=== PATIENT | male | born 1950 | race Caucasian/White ===

== ENCOUNTER 2018-07-02 12:38 | Inpatient (IN) | payer MEDICARE ==
[~2018-07-02] VITALS: Ht 167.6 cm; Wt 56.2 kg
[2018-07-02 12:45] VITALS: BP_SYST 111
[2018-07-02] MEDS ORDERED: PIPERACILLIN/TAZO 3.38 GM in NS 50 ML IV ONE (13:15)
[2018-07-02 13:43] LABS: HEMATOCRIT 41.4 % (36-54); HEMOGLOBIN 13.5 g/dL (14.0-18.0); MEAN CORPUSCULAR HEMOGLOBIN 32 pg (27-31); MEAN CORPUSCULAR HGB CONC 33 % (32-36); MEAN CORPUSCULAR VOLUME 96 fL (79.0-98.0); PLATELET COUNT (AUTO) 247 K/uL (130-430); RED CELL DISTRIBUTION WIDTH 13.5 % (9.0-15.0); WHITE BLOOD COUNT (AUTO) 8.4 K/uL (4.8-10.8)
[2018-07-02 13:49] LABS: CALCIUM 9.5 mg/dL (8.4-11.0); CREATININE 1.2 mg/dL (0.55-1.30); POTASSIUM 4.2 mmol/L (3.5-5.1)
[2018-07-02] MEDS ORDERED: PIPERACILLIN/TAZOBACTAM 3.375 GM/VIAL (ZOSYN) IV ONE (13:49)
[2018-07-02 13:55] LABS: ALBUMIN 2.8 g/dL (3.4-4.8); TOTAL BILIRUBIN 0.4 mg/dL (0.0-1.0)
[2018-07-02 14:02] LABS: INR 1.1 (0.80-1.20)
[2018-07-02 14:14] LABS: BASOPHILS % (MANUAL) 0 % (0-2); EOSINOPHILS % (MANUAL) 0 % (0-7); LYMPHOCYTES % (MANUAL) 16 % (20-46); MONOCYTES % (MANUAL) 6 % (0-11)
[2018-07-02 16:45] LABS: BILIRUBIN,URINE NEGATIVE (NEGATIVE); BLOOD, URINE 3+ (NEGATIVE); CLARITY/URINE CLOUDY (CLEAR); COLOR,URINE YELLOW (YELLOW); GLUCOSE,URINE NEGATIVE (NEGATIVE); KETONES,URINE NEGATIVE (NEGATIVE); LEUKOCYTE ESTERASE ,URINE 2+ (NEGATIVE); NITRITE, URINE NEGATIVE (NEGATIVE); PH,URINE 8.5 (5.0-8.0); PROTEIN URINE 3+ (NEGATIVE)
[2018-07-02] MEDS ORDERED: NACL 0.9% 1,000 ML IV ONE ×2 (16:45→17:00)
[2018-07-02] MEDS ORDERED: MEMA5TAB PO (16:51)
[2018-07-02] MEDS ORDERED: ACET325T53 PO (16:51)
[2018-07-02] MEDS ORDERED: divalproex PO (16:51)
[2018-07-02] MEDS ORDERED: SER100 PO (16:51)
[2018-07-02] MEDS ORDERED: FINA5TAB3 PO (16:51)
[2018-07-02] MEDS ORDERED: LORA-258 PO (16:51)
[2018-07-02] MEDS ORDERED: LISI-209 PO (16:51)
[2018-07-02] MEDS ORDERED: BUDE0.5A IH (16:51)
[2018-07-02] MEDS ORDERED: BEN50 PO (16:51)
[2018-07-02] MEDS ORDERED: TAMS-11 PO (16:51)
[2018-07-02] MEDS ORDERED: OLAN2.5T29 PO (16:51)
[2018-07-02 17:00] LABS: BACTERIA,URINE MANY /HPF (None Seen); MUCUS,URINE None Seen /LPF (None Seen); RBC,URINE >100 /HPF (0-3); WBC,URINE >100 /HPF (0-3)
[2018-07-02] MEDS ORDERED: ONDANSETRON HCL 4 MG/2 ML VIAL IVP PRN (17:15)
[2018-07-02] MEDS ORDERED: ACETAMINOPHEN 325 MG TABLET PO SCH (17:15)
[2018-07-02] MEDS ORDERED: BUDESONIDE 0.5 MG/2 ML AMPUL.NEB IH PRN (17:15)
[2018-07-02] MEDS ORDERED: DIPHENHYDRAMINE HCL 50 MG CAPSULE PO SCH (17:15)
[2018-07-02 18:22] VITALS: BP_SYST 127
[2018-07-02 19:05] VITALS: BP_SYST 143
[2018-07-02] MEDS: FINASTERIDE 5 MG TABLET (PROSCAR) PO SCH (21:00)
[2018-07-02] MEDS: OLANZapine 2.5 MG TABLET PO SCH (21:00)
[2018-07-03] VITALS (7 sets, daily range): BP systolic 109–143
[2018-07-03 06:59] LABS: BASOPHILS % (AUTO) 0.3 % (0.0-2.0); EOSINOPHILS # (AUTO) 0.1 K/uL (0.0-0.4); EOSINOPHILS % (AUTO) 1.7 % (0.0-4.0); HEMOGLOBIN 12.3 g/dL (14.0-18.0); LYMPHOCYTES # (AUTO) 2.1 K/uL (1.0-5.5); MEAN CORPUSCULAR HEMOGLOBIN 32 pg (27-31); MEAN CORPUSCULAR HGB CONC 33 % (32-36); MEAN CORPUSCULAR VOLUME 97 fL (79.0-98.0); MONOCYTES # (AUTO) 0.9 K/uL (0.0-1.0); MONOCYTES % (AUTO) 12.9 % (1.7-9.3); NEUTROPHILS # (AUTO) 4.1 K/uL (1.8-7.7); NEUTROPHILS % (AUTO) 56.1 % (40.0-70.0); PLATELET COUNT (AUTO) 244 K/uL (130-430); RED BLOOD CELL COUNT(AUTO) 3.83 MIL/uL (4.2-6.2); RED CELL DISTRIBUTION WIDTH 13.5 % (9.0-15.0); WHITE BLOOD COUNT (AUTO) 7.2 K/uL (4.8-10.8)
[2018-07-03 07:33] LABS: POTASSIUM 5.5 mmol/L (3.5-5.1)
[2018-07-03] MEDS ORDERED: DIPHENHYDRAMINE HCL 50 MG CAPSULE PO PRN (08:00)
[2018-07-03 08:05] LABS: CALCIUM 9.7 mg/dL (8.4-11.0); CREATININE 0.84 mg/dL (0.55-1.30)
[2018-07-03] MEDS ORDERED: DEXTROSE 50% JECT 50 ML DISP.SYRIN IVP PRN (09:15)
[2018-07-03] MEDS: NACL 0.9% 1,000 ML IV SCH ×2 (11:53→21:59)
[2018-07-03] MEDS ORDERED: NS 500 ML IV ONE (12:45)
[2018-07-03] MEDS: QUEtiapine FUMARATE 100 MG TABLET PO SCH (12:53)
[2018-07-03] MEDS: OLANZapine 2.5 MG TABLET PO SCH ×3 (12:53→21:58)
[2018-07-03] MEDS: MEMANTINE HCL 5 MG TABLET PO SCH (12:53)
[2018-07-03] MEDS: LISINOPRIL 5 MG TABLET PO SCH (12:54)
[2018-07-03] MEDS: CEFEPIME 1 GM in D5W 50 ML IV SCH ×2 (14:10→21:57)
[2018-07-03] MEDS: INSULIN REGULAR, HUMAN 100 UNITS/ML, 10 ML VIAL (novoLIN R) SUBCUT PRN (18:24)
[2018-07-03] MEDS: FINASTERIDE 5 MG TABLET (PROSCAR) PO SCH (21:00)
[2018-07-03] MEDS: TAMSULOSIN HCL 0.4 MG CAP PO SCH (21:59)
[2018-07-04 00:03] VITALS: BP_SYST 136
[2018-07-04] MEDS: NACL 0.9% 1,000 ML IV SCH ×2 (04:53→09:26)
[2018-07-04] MEDS: CEFEPIME 1 GM in D5W 50 ML IV SCH ×2 (08:28→21:42)
[2018-07-04] MEDS: OLANZapine 2.5 MG TABLET PO SCH ×3 (08:32→21:42)
[2018-07-04] MEDS: QUEtiapine FUMARATE 100 MG TABLET PO SCH (08:32)
[2018-07-04] MEDS: MEMANTINE HCL 5 MG TABLET PO SCH (08:32)
[2018-07-04] MEDS: LISINOPRIL 5 MG TABLET PO SCH (08:43)
[2018-07-04 09:00] VITALS: BP_SYST 180
[2018-07-04] MEDS ORDERED: cloNIDine HCL 0.1 MG TABLET PO PRN (09:15)
[2018-07-04 09:20] VITALS: BP_SYST 113
[2018-07-04 11:36] VITALS: BP_SYST 127
[2018-07-04] MEDS: NORMAL SALINE 5 ML DISP.SYRIN IVF SCH ×2 (15:01→21:43)
[2018-07-04 16:00] VITALS: BP_SYST 116
[2018-07-04] MEDS: DEXTROSE 50% JECT 50 ML DISP.SYRIN IVP PRN (18:22)
[2018-07-04 21:02] VITALS: BP_SYST 137
[2018-07-04] MEDS: TAMSULOSIN HCL 0.4 MG CAP PO SCH (21:42)
[2018-07-04] MEDS: LORazepam 1 MG TABLET PO SCH (21:42)
[2018-07-04] MEDS: FINASTERIDE 5 MG TABLET (PROSCAR) PO SCH (21:42)
[2018-07-05 01:25] VITALS: BP_SYST 124
[2018-07-05] MEDS: NORMAL SALINE 5 ML DISP.SYRIN IVF SCH ×3 (06:23→21:35)
[2018-07-05 08:06] VITALS: BP_SYST 141
[2018-07-05] MEDS: CEFEPIME 1 GM in D5W 50 ML IV SCH ×2 (08:37→21:21)
[2018-07-05 08:58] LABS: BASOPHILS % (AUTO) 0.5 % (0.0-2.0); EOSINOPHILS # (AUTO) 0.1 K/uL (0.0-0.4); EOSINOPHILS % (AUTO) 1.9 % (0.0-4.0); HEMATOCRIT 35.1 % (36-54); HEMOGLOBIN 11.8 g/dL (14.0-18.0); LYMPHOCYTES # (AUTO) 1.7 K/uL (1.0-5.5); LYMPHOCYTES % (AUTO) 24.3 % (20.5-51.5); MEAN CORPUSCULAR HEMOGLOBIN 33 pg (27-31); MEAN CORPUSCULAR HGB CONC 34 % (32-36); MEAN CORPUSCULAR VOLUME 97 fL (79.0-98.0); MONOCYTES # (AUTO) 0.8 K/uL (0.0-1.0); MONOCYTES % (AUTO) 11.6 % (1.7-9.3); NEUTROPHILS # (AUTO) 4.3 K/uL (1.8-7.7); NEUTROPHILS % (AUTO) 61.7 % (40.0-70.0); PLATELET COUNT (AUTO) 242 K/uL (130-430); RED BLOOD CELL COUNT(AUTO) 3.61 MIL/uL (4.2-6.2); RED CELL DISTRIBUTION WIDTH 13.3 % (9.0-15.0); WHITE BLOOD COUNT (AUTO) 6.9 K/uL (4.8-10.8)
[2018-07-05 09:10] LABS: CALCIUM 8.6 mg/dL (8.4-11.0); CREATININE 0.73 mg/dL (0.55-1.30)
[2018-07-05] MEDS: QUEtiapine FUMARATE 100 MG TABLET PO SCH (09:19)
[2018-07-05] MEDS: LISINOPRIL 5 MG TABLET PO SCH (09:19)
[2018-07-05] MEDS: OLANZapine 2.5 MG TABLET PO SCH ×3 (09:19→21:19)
[2018-07-05] MEDS: MEMANTINE HCL 5 MG TABLET PO SCH (09:19)
[2018-07-05 09:20] LABS: POTASSIUM 2.8 mmol/L (3.5-5.1)
[2018-07-05 09:36] LABS: C-REACTIVE PROTEIN QUANT 3.7 mg/dL (0-0.5)
[2018-07-05 09:50] LABS: ERYTHROCYTE SEDIMENTATION RATE 45 MM/HR (0-15)
[2018-07-05] MEDS ORDERED: POTASSIUM CHLORIDE 40 MEQ in NS 250 ML IV ONE (10:15)
[2018-07-05 12:00] VITALS: BP_SYST 144
[2018-07-05 16:00] VITALS: BP_SYST 149
[2018-07-05] MEDS: INSULIN REGULAR, HUMAN 100 UNITS/ML, 10 ML VIAL (novoLIN R) SUBCUT PRN (16:47)
[2018-07-05 19:45] LABS: POTASSIUM 3.5 mmol/L (3.5-5.1)
[2018-07-05 19:51] VITALS: BP_SYST 140
[2018-07-05] MEDS: TAMSULOSIN HCL 0.4 MG CAP PO SCH (21:19)
[2018-07-05] MEDS: FINASTERIDE 5 MG TABLET (PROSCAR) PO SCH (21:20)
[2018-07-05] MEDS: DEXTROSE 50% JECT 50 ML DISP.SYRIN IVP PRN (21:59)
[2018-07-06] VITALS: BP_SYST 144
[2018-07-06] MEDS: DEXTROSE 50% JECT 50 ML DISP.SYRIN IVP PRN (06:31)
[2018-07-06] MEDS: NORMAL SALINE 5 ML DISP.SYRIN IVF SCH ×3 (06:37→20:25)
[2018-07-06 08:33] VITALS: BP_SYST 146
[2018-07-06] MEDS: CEFEPIME 1 GM in D5W 50 ML IV SCH ×2 (08:40→20:22)
[2018-07-06] MEDS: OLANZapine 2.5 MG TABLET PO SCH ×3 (08:46→20:23)
[2018-07-06] MEDS: LORazepam 1 MG TABLET PO SCH (08:46)
[2018-07-06] MEDS: LISINOPRIL 5 MG TABLET PO SCH (08:46)
[2018-07-06] MEDS: QUEtiapine FUMARATE 100 MG TABLET PO SCH (08:46)
[2018-07-06] MEDS: MEMANTINE HCL 5 MG TABLET PO SCH (08:46)
[2018-07-06 09:10] LABS: BASOPHILS # (AUTO) 0.1 K/uL (0.0-0.2); BASOPHILS % (AUTO) 0.7 % (0.0-2.0); EOSINOPHILS # (AUTO) 0.2 K/uL (0.0-0.4); EOSINOPHILS % (AUTO) 3.2 % (0.0-4.0); HEMATOCRIT 41.2 % (36-54); HEMOGLOBIN 13.7 g/dL (14.0-18.0); LYMPHOCYTES # (AUTO) 1.5 K/uL (1.0-5.5); LYMPHOCYTES % (AUTO) 21.5 % (20.5-51.5); MEAN CORPUSCULAR HEMOGLOBIN 32 pg (27-31); MEAN CORPUSCULAR HGB CONC 33 % (32-36); MEAN CORPUSCULAR VOLUME 96 fL (79.0-98.0); MONOCYTES # (AUTO) 0.6 K/uL (0.0-1.0); MONOCYTES % (AUTO) 8.8 % (1.7-9.3); NEUTROPHILS # (AUTO) 4.8 K/uL (1.8-7.7); NEUTROPHILS % (AUTO) 65.8 % (40.0-70.0); PLATELET COUNT (AUTO) 322 K/uL (130-430); RED CELL DISTRIBUTION WIDTH 13.1 % (9.0-15.0); WHITE BLOOD COUNT (AUTO) 7.2 K/uL (4.8-10.8)
[2018-07-06 09:24] LABS: C-REACTIVE PROTEIN QUANT 2.7 mg/dL (0-0.5); CALCIUM 9.4 mg/dL (8.4-11.0); CREATININE 0.72 mg/dL (0.55-1.30); POTASSIUM 3.3 mmol/L (3.5-5.1)
[2018-07-06 10:22] LABS: ERYTHROCYTE SEDIMENTATION RATE 53 MM/HR (0-15)
[2018-07-06 12:00] VITALS: BP_SYST 98
[2018-07-06 12:50] VITALS: BP_SYST 146
[2018-07-06] MEDS ORDERED: CEFE1PIG3 IV (12:57)
[2018-07-06] MEDS ORDERED: INSU100V11 SUBCUT (12:57)
[2018-07-06] MEDS ORDERED: POTASSIUM CHLORIDE 20 MEQ TAB.PRT.SR PO ONE (13:00)
[2018-07-06 14:00] VITALS: BP_SYST 149
[2018-07-06 20:00] VITALS: BP_SYST 119
[2018-07-06] MEDS: TAMSULOSIN HCL 0.4 MG CAP PO SCH (20:22)
[2018-07-06] MEDS: FINASTERIDE 5 MG TABLET (PROSCAR) PO SCH (20:23)
[2018-07-06] MEDS: INSULIN REGULAR, HUMAN 100 UNITS/ML, 10 ML VIAL (novoLIN R) SUBCUT PRN (20:33)
[2018-07-07 00:15] VITALS: BP_SYST 137
[2018-07-07] MEDS: LORazepam 1 MG TABLET PO SCH (01:00)
[2018-07-07] MEDS: NORMAL SALINE 5 ML DISP.SYRIN IVF SCH ×2 (06:03→14:08)
[2018-07-07 08:05] VITALS: BP_SYST 139
[2018-07-07] MEDS: CEFEPIME 1 GM in D5W 50 ML IV SCH (09:27)
[2018-07-07] MEDS: MEMANTINE HCL 5 MG TABLET PO SCH (09:28)
[2018-07-07] MEDS: QUEtiapine FUMARATE 100 MG TABLET PO SCH (09:28)
[2018-07-07] MEDS: OLANZapine 2.5 MG TABLET PO SCH ×2 (09:28→14:08)
[2018-07-07] MEDS: LISINOPRIL 5 MG TABLET PO SCH (09:29)
[2018-07-07] MEDS: DEXTROSE 50% JECT 50 ML DISP.SYRIN IVP PRN (09:35)
[2018-07-07] MEDS: INSULIN REGULAR, HUMAN 100 UNITS/ML, 10 ML VIAL (novoLIN R) SUBCUT PRN (11:46)
[2018-07-07 12:40] VITALS: BP_SYST 125
[2018-07-07 14:42] VITALS: BP_SYST 125
== END 2018-07-07 15:50 | DRG 720 ==
LOC: SED 12:38 → SMU 17:03
PROVIDERS: ADMIT Preventive Medicine Preventive Medicine/Occupational Environmental Medicine; ATTEND Preventive Medicine Preventive Medicine/Occupational Environmental Medicine
DX: A41.9 Sepsis, unspecified organism (principal); N17.9 Acute kidney failure, unspecified; G93.41 Metabolic encephalopathy; E87.0 Hyperosmolality and hypernatremia; E87.5 Hyperkalemia; D64.9 Anemia, unspecified; E11.9 Type 2 diabetes mellitus without complications; G20 Parkinson's disease; F25.9 Schizoaffective disorder, unspecified; G30.9 Alzheimer's disease, unspecified; J44.9 Chronic obstructive pulmonary disease, unspecified; F02.80 Dementia in other diseases classified elsewhere, unspecified severity, without behavioral disturbance, psychotic disturbance, mood disturbance, and anxiety; E78.5 Hyperlipidemia, unspecified; E86.0 Dehydration; I10 Essential (primary) hypertension; N39.0 Urinary tract infection, site not specified; R31.0 Gross hematuria; N32.81 Overactive bladder; B96.4 Proteus (mirabilis) (morganii) as the cause of diseases classified elsewhere; F41.1 Generalized anxiety disorder; K21.9 Gastro-esophageal reflux disease without esophagitis; N40.1 Benign prostatic hyperplasia with lower urinary tract symptoms; R33.8 Other retention of urine; F63.9 Impulse disorder, unspecified; F32.9 Major depressive disorder, single episode, unspecified; F79 Unspecified intellectual disabilities; E87.6 Hypokalemia; Z16.19 Resistance to other specified beta lactam antibiotics; Z86.73 Personal history of transient ischemic attack (TIA), and cerebral infarction without residual deficits; Z88.0 Allergy status to penicillin; Z79.899 Other long term (current) drug therapy
CPT/HCPCS: 36415; 71045; 74018; 80048; 80053; 81000-TC; 82962; 83605; 83735-TC; 84100-TC; 84132-TC; 85007; 85025; 85027; 85610-TC; 85651-TC; 86140; 87040-TC; 87081; 87086; 87186-TC; 96361; 96365; 99285; J0692; J1815; J2543; J3480; J7030; J7040; J7050; J7060

== ENCOUNTER 2018-08-07 22:02 | Inpatient (IN) | payer MEDICARE ==
[~2018-08-07] VITALS: Ht 160 cm; Wt 54.0 kg
[2018-08-07 22:02] VITALS: BP_SYST 141
[~2018-08-07 22:02] MED LIST: ACET325T53 GT; BEN50 GT; BUDE0.5A IH; CEFE1PIG3 IV; FINA5TAB3 GT; INSU100V11 SUBCUT; LISI-209 GT; LORA-258 GT; MEMA5TAB PO; OLAN2.5T29 GT; SER100 GT; TAMS-11 GT; divalproex PO
[2018-08-07] MEDS ORDERED: DIVA250T GT (22:16)
[2018-08-07] MEDS ORDERED: INSU100V9 SQ (22:19)
[2018-08-07] MEDS ORDERED: FOSFOMYCIN GT (22:29)
[2018-08-07] MEDS ORDERED: NACL 0.9% 1,000 ML IV ONE (22:30)
[2018-08-07 22:40] LABS: BASOPHILS # (AUTO) 0.1 K/uL (0.0-0.2); BASOPHILS % (AUTO) 0.7 % (0.0-2.0); EOSINOPHILS % (AUTO) 0.1 % (0.0-4.0); HEMATOCRIT 43.8 % (36-54); HEMOGLOBIN 14.1 g/dL (14.0-18.0); LYMPHOCYTES # (AUTO) 0.8 K/uL (1.0-5.5); LYMPHOCYTES % (AUTO) 6.6 % (20.5-51.5); MEAN CORPUSCULAR HEMOGLOBIN 31 pg (27-31); MEAN CORPUSCULAR HGB CONC 32 % (32-36); MEAN CORPUSCULAR VOLUME 97 fL (79.0-98.0); MONOCYTES # (AUTO) 0.7 K/uL (0.0-1.0); MONOCYTES % (AUTO) 6.1 % (1.7-9.3); NEUTROPHILS % (AUTO) 86.5 % (40.0-70.0); PLATELET COUNT (AUTO) 305 K/uL (130-430); RED BLOOD CELL COUNT(AUTO) 4.53 MIL/uL (4.2-6.2); RED CELL DISTRIBUTION WIDTH 14.4 % (9.0-15.0); WHITE BLOOD COUNT (AUTO) 11.6 K/uL (4.8-10.8)
[2018-08-07 22:45] LABS: CALCIUM 9.6 mg/dL (8.4-11.0); CREATININE 1.2 mg/dL (0.55-1.30)
[2018-08-07 22:52] LABS: ALBUMIN 3.2 g/dL (3.4-4.8); TOTAL BILIRUBIN 0.7 mg/dL (0.0-1.0)
[2018-08-07 22:53] LABS: INR 1.2 (0.80-1.20); PROTHROMBIN TIME 11.6 SECS (9.5-12.5)
[2018-08-07] MEDS ORDERED: cefTRIAXone 1 GM IVPB PREMIX 50 ML IV ONE (23:15)
[2018-08-07 23:27] LABS: BILIRUBIN,URINE NEGATIVE (NEGATIVE); BLOOD, URINE 2+ (NEGATIVE); COLOR,URINE YELLOW (YELLOW); GLUCOSE,URINE NEGATIVE (NEGATIVE); KETONES,URINE NEGATIVE (NEGATIVE); LEUKOCYTE ESTERASE ,URINE 2+ (NEGATIVE); NITRITE, URINE POSITIVE (NEGATIVE); PROTEIN URINE 2+ (NEGATIVE); UROBILINOGEN,URINE 0.2 (0.2-1.0)
[2018-08-07 23:31] LABS: CLARITY/URINE CLOUDY (CLEAR)
[2018-08-07 23:35] LABS: BACTERIA,URINE MODERATE /HPF (None Seen); MUCUS,URINE None Seen /LPF (None Seen); RBC,URINE 20-50 /HPF (0-3); WBC,URINE 80-100 /HPF (0-3); YEAST,URINE None Seen /HPF (None Seen)
[2018-08-08] VITALS (7 sets, daily range): BP systolic 95–138
[2018-08-08] MEDS ORDERED: IOHEXOL 350 mgI/mL, 150 ML INFUS..BTL IV ONE (00:38)
[2018-08-08] MEDS ORDERED: VANCOMYCIN HCL 1,000 MG in NS 250 ML IV ONE (01:15)
[2018-08-08] MEDS ORDERED: NACL 0.9% 1,000 ML IV ONE (01:15)
[2018-08-08] MEDS ORDERED: VANCOMYCIN HCL 1000 MG/VIAL IV ONE (01:44)
[2018-08-08] MEDS ORDERED: ACETAMINOPHEN 325 MG TABLET PO ONE (01:45)
[2018-08-08] MEDS ORDERED: hydrALAZINE HCL 20 MG/ML VIAL ONE (02:25)
[2018-08-08] MEDS ORDERED: hydrALAZINE HCL 20 MG/ML VIAL IVP ONE (02:30)
[2018-08-08] MEDS ORDERED: BUDESONIDE 0.5 MG/2 ML AMPUL.NEB IH PRN (05:00)
[2018-08-08] MEDS ORDERED: FOSFOMYCIN GT SCH (05:00)
[2018-08-08] MEDS ORDERED: ONDANSETRON HCL 4 MG/2 ML VIAL IVP PRN (05:00)
[2018-08-08] MEDS ORDERED: DEXTROSE 50% JECT 50 ML DISP.SYRIN IVP PRN (05:00)
[2018-08-08] MEDS: LORazepam 1 MG TABLET GT PRN ×2 (05:20→21:59)
[2018-08-08] MEDS: INSULIN REGULAR, HUMAN 100 UNITS/ML, 10 ML VIAL (novoLIN R) SUBCUT PRN ×2 (06:41→12:16)
[2018-08-08] MEDS: QUEtiapine FUMARATE 100 MG TABLET GT SCH (08:15)
[2018-08-08] MEDS: OLANZapine 2.5 MG TABLET GT SCH ×3 (08:15→21:00)
[2018-08-08] MEDS: LISINOPRIL 5 MG TABLET GT SCH (08:16)
[2018-08-08] MEDS ORDERED: DIVALPROEX SODIUM 250 MG TAB.SR.24H (DEPAKOTE ER) PO SCH (09:00)
[2018-08-08] MEDS: DIVALPROEX SODIUM 250 MG TABLET(DEPAKOTE) PO SCH ×4 (09:17→20:55)
[2018-08-08] MEDS: NACL 0.9% 1,000 ML IV SCH ×2 (12:56→21:10)
[2018-08-08] MEDS: FINASTERIDE 5 MG TABLET (PROSCAR) GT SCH (20:55)
[2018-08-08] MEDS: TAMSULOSIN HCL 0.4 MG CAP GT SCH (20:55)
[2018-08-08] MEDS: CLOTRIMAZOLE/BETAMET DIPROP 15 GM TUBE TP SCH (21:01)
[2018-08-08] MEDS ORDERED: cefTRIAXone 1 GM IVPB PREMIX 50 ML IV SCH (22:00)
[2018-08-09] MEDS: LORazepam 1 MG TABLET GT PRN (04:04)
[2018-08-09] MEDS: DEXTROSE 50% JECT 50 ML DISP.SYRIN IVP PRN (05:16)
[2018-08-09] MEDS: NACL 0.9% 1,000 ML IV SCH (05:26)
[2018-08-09 06:53] LABS: BASOPHILS % (AUTO) 0.2 % (0.0-2.0); EOSINOPHILS # (AUTO) 0.1 K/uL (0.0-0.4); EOSINOPHILS % (AUTO) 1.4 % (0.0-4.0); HEMATOCRIT 35.3 % (36-54); LYMPHOCYTES # (AUTO) 1.3 K/uL (1.0-5.5); LYMPHOCYTES % (AUTO) 13.3 % (20.5-51.5); MEAN CORPUSCULAR HEMOGLOBIN 33 pg (27-31); MEAN CORPUSCULAR HGB CONC 34 % (32-36); MEAN CORPUSCULAR VOLUME 97 fL (79.0-98.0); MONOCYTES # (AUTO) 0.6 K/uL (0.0-1.0); MONOCYTES % (AUTO) 5.7 % (1.7-9.3); NEUTROPHILS # (AUTO) 7.8 K/uL (1.8-7.7); NEUTROPHILS % (AUTO) 79.4 % (40.0-70.0); PLATELET COUNT (AUTO) 260 K/uL (130-430); RED BLOOD CELL COUNT(AUTO) 3.63 MIL/uL (4.2-6.2); RED CELL DISTRIBUTION WIDTH 14.7 % (9.0-15.0); WHITE BLOOD COUNT (AUTO) 9.8 K/uL (4.8-10.8)
[2018-08-09 07:38] LABS: C-REACTIVE PROTEIN QUANT 4.1 mg/dL (0-0.5); CALCIUM 8.4 mg/dL (8.4-11.0); CREATININE 0.65 mg/dL (0.55-1.30)
[2018-08-09 07:41] VITALS: BP_SYST 122
[2018-08-09 08:26] LABS: ERYTHROCYTE SEDIMENTATION RATE 23 MM/HR (0-15)
[2018-08-09] MEDS: DIVALPROEX SODIUM 250 MG TABLET(DEPAKOTE) PO SCH ×4 (08:42→20:22)
[2018-08-09] MEDS: CLOTRIMAZOLE/BETAMET DIPROP 15 GM TUBE TP SCH ×2 (08:42→20:23)
[2018-08-09] MEDS: QUEtiapine FUMARATE 100 MG TABLET GT SCH (08:42)
[2018-08-09] MEDS: LISINOPRIL 5 MG TABLET GT SCH (08:42)
[2018-08-09] MEDS: OLANZapine 2.5 MG TABLET GT SCH ×3 (08:43→20:22)
[2018-08-09] MEDS ORDERED: POTASSIUM CHLORIDE 20 MEQ TAB.PRT.SR PO ONE (09:45)
[2018-08-09 11:09] VITALS: BP_SYST 128
[2018-08-09 15:31] VITALS: BP_SYST 132
[2018-08-09 17:35] VITALS: BP_SYST 139
[2018-08-09] MEDS: ACETAMINOPHEN 325 MG TABLET GT PRN (17:56)
[2018-08-09 20:00] VITALS: BP_SYST 128
[2018-08-09] MEDS: VANCOMYCIN HCL 1,250 MG in NS 250 ML IV SCH (20:12)
[2018-08-09] MEDS: TAMSULOSIN HCL 0.4 MG CAP GT SCH (20:22)
[2018-08-09] MEDS: FINASTERIDE 5 MG TABLET (PROSCAR) GT SCH (20:22)
[2018-08-09] MEDS: MUPIROCIN 2% TOPICAL OINTMENT 22 GM NS SCH (20:23)
[2018-08-09] MEDS: CEFEPIME 2 GM in D5W 100 ML IV SCH (21:49)
[2018-08-10] MEDS: INSULIN REGULAR, HUMAN 100 UNITS/ML, 10 ML VIAL (novoLIN R) SUBCUT PRN ×4 (05:40→23:01)
[2018-08-10 07:04] LABS: CREATININE 0.78 mg/dL (0.55-1.30); POTASSIUM 4.3 mmol/L (3.5-5.1)
[2018-08-10 07:06] LABS: HEMATOCRIT 41.8 % (36-54); HEMOGLOBIN 13.9 g/dL (14.0-18.0); MEAN CORPUSCULAR HEMOGLOBIN 32 pg (27-31); MEAN CORPUSCULAR HGB CONC 33 % (32-36); MEAN CORPUSCULAR VOLUME 97 fL (79.0-98.0); PLATELET COUNT (AUTO) 258 K/uL (130-430); RED BLOOD CELL COUNT(AUTO) 4.34 MIL/uL (4.2-6.2); RED CELL DISTRIBUTION WIDTH 14.8 % (9.0-15.0)
[2018-08-10 07:22] LABS: WHITE BLOOD COUNT (AUTO) 18.6 K/uL (4.8-10.8)
[2018-08-10 07:48] LABS: C-REACTIVE PROTEIN QUANT 14.1 mg/dL (0-0.5)
[2018-08-10 08:00] VITALS: BP_SYST 142
[2018-08-10 08:04] LABS: ATYPICAL LYMPHOCYTES % 0 % (0-0); BAND % (MANUAL) 10 % (0-6); BASOPHILS % (MANUAL) 0 % (0-2); EOSINOPHILS % (MANUAL) 0 % (0-7); LYMPHOCYTES % (MANUAL) 5 % (20-46); MONOCYTES % (MANUAL) 2 % (0-11)
[2018-08-10] MEDS: CEFEPIME 2 GM in D5W 100 ML IV SCH (08:24)
[2018-08-10] MEDS: ACETAMINOPHEN 325 MG TABLET GT PRN (08:24)
[2018-08-10] MEDS: MUPIROCIN 2% TOPICAL OINTMENT 22 GM NS SCH ×2 (08:25→22:48)
[2018-08-10] MEDS: DIVALPROEX SODIUM 250 MG TABLET(DEPAKOTE) PO SCH ×4 (08:25→22:47)
[2018-08-10] MEDS: QUEtiapine FUMARATE 100 MG TABLET GT SCH (08:25)
[2018-08-10] MEDS: OLANZapine 2.5 MG TABLET GT SCH ×3 (08:25→22:47)
[2018-08-10] MEDS: LISINOPRIL 5 MG TABLET GT SCH (08:25)
[2018-08-10] MEDS: CLOTRIMAZOLE/BETAMET DIPROP 15 GM TUBE TP SCH ×2 (08:26→22:49)
[2018-08-10 09:03] LABS: ERYTHROCYTE SEDIMENTATION RATE 48 MM/HR (0-15)
[2018-08-10 11:29] VITALS: BP_SYST 115
[2018-08-10] MEDS: MEROPENEM 1 GM in NS 100 ML IV SCH ×2 (14:59→22:49)
[2018-08-10 15:25] VITALS: BP_SYST 116
[2018-08-10] MEDS: GENTAMICIN 80 MG/ ISO-OSM 100 ML PREMIX IV SCH (16:37)
[2018-08-10] MEDS: VANCOMYCIN HCL 1,250 MG in NS 250 ML IV SCH (18:11)
[2018-08-10 20:35] VITALS: BP_SYST 149
[2018-08-10] MEDS: TAMSULOSIN HCL 0.4 MG CAP GT SCH (22:48)
[2018-08-10] MEDS: FINASTERIDE 5 MG TABLET (PROSCAR) GT SCH (22:48)
[2018-08-11] MEDS: ACETAMINOPHEN 325 MG TABLET GT PRN (00:05)
[2018-08-11 00:42] VITALS: BP_SYST 143
[2018-08-11] MEDS: GENTAMICIN 80 MG/ ISO-OSM 100 ML PREMIX IV SCH ×2 (06:37→17:28)
[2018-08-11] MEDS: MEROPENEM 1 GM in NS 100 ML IV SCH ×3 (06:38→21:59)
[2018-08-11 07:11] VITALS: BP_SYST 143
[2018-08-11 08:00] VITALS: BP_SYST 143
[2018-08-11 08:25] LABS: BASOPHILS % (AUTO) 0.1 % (0.0-2.0); EOSINOPHILS # (AUTO) 0.1 K/uL (0.0-0.4); EOSINOPHILS % (AUTO) 0.3 % (0.0-4.0); LYMPHOCYTES # (AUTO) 1.1 K/uL (1.0-5.5); WHITE BLOOD COUNT (AUTO) 18.2 K/uL (4.8-10.8)
[2018-08-11 08:32] LABS: HEMATOCRIT 36.7 % (36-54); HEMOGLOBIN 12.1 g/dL (14.0-18.0); LYMPHOCYTES % (AUTO) 5.8 % (20.5-51.5); MEAN CORPUSCULAR HEMOGLOBIN 32 pg (27-31); MEAN CORPUSCULAR HGB CONC 33 % (32-36); MEAN CORPUSCULAR VOLUME 97 fL (79.0-98.0); MONOCYTES # (AUTO) 0.8 K/uL (0.0-1.0); MONOCYTES % (AUTO) 4.4 % (1.7-9.3); NEUTROPHILS # (AUTO) 16.2 K/uL (1.8-7.7); PLATELET COUNT (AUTO) 247 K/uL (130-430); RED BLOOD CELL COUNT(AUTO) 3.78 MIL/uL (4.2-6.2); RED CELL DISTRIBUTION WIDTH 14.6 % (9.0-15.0)
[2018-08-11 08:50] LABS: NEUTROPHILS % (AUTO) 89.4 % (40.0-70.0)
[2018-08-11 08:55] LABS: C-REACTIVE PROTEIN QUANT 17.4 mg/dL (0-0.5); CALCIUM 8.7 mg/dL (8.4-11.0); CREATININE 0.72 mg/dL (0.55-1.30)
[2018-08-11] MEDS: OLANZapine 2.5 MG TABLET GT SCH ×3 (09:50→21:57)
[2018-08-11] MEDS: QUEtiapine FUMARATE 100 MG TABLET GT SCH (09:50)
[2018-08-11] MEDS: LISINOPRIL 5 MG TABLET GT SCH (09:51)
[2018-08-11] MEDS: DIVALPROEX SODIUM 250 MG TABLET(DEPAKOTE) PO SCH ×4 (09:51→21:57)
[2018-08-11] MEDS: CLOTRIMAZOLE/BETAMET DIPROP 15 GM TUBE TP SCH ×2 (09:53→21:56)
[2018-08-11] MEDS: MUPIROCIN 2% TOPICAL OINTMENT 22 GM NS SCH ×2 (09:53→21:56)
[2018-08-11 11:31] LABS: ERYTHROCYTE SEDIMENTATION RATE 63 MM/HR (0-15)
[2018-08-11 12:15] VITALS: BP_SYST 132
[2018-08-11 16:25] VITALS: BP_SYST 142
[2018-08-11] MEDS: VANCOMYCIN HCL 1,250 MG in NS 250 ML IV SCH (18:42)
[2018-08-11 20:10] VITALS: BP_SYST 130
[2018-08-11] MEDS: TAMSULOSIN HCL 0.4 MG CAP GT SCH (21:57)
[2018-08-11] MEDS: FINASTERIDE 5 MG TABLET (PROSCAR) GT SCH (21:57)
[2018-08-11] MEDS: DIPHENHYDRAMINE HCL 50 MG CAPSULE GT PRN (22:59)
[2018-08-12] VITALS: BP_SYST 129
[2018-08-12] MEDS: MEROPENEM 1 GM in NS 100 ML IV SCH ×3 (05:31→21:02)
[2018-08-12] MEDS: GENTAMICIN 80 MG/ ISO-OSM 100 ML PREMIX IV SCH ×2 (05:31→17:36)
[2018-08-12 07:11] LABS: HEMATOCRIT 33.6 % (36-54); HEMOGLOBIN 11.3 g/dL (14.0-18.0); MEAN CORPUSCULAR HEMOGLOBIN 33 pg (27-31); MEAN CORPUSCULAR HGB CONC 34 % (32-36); MEAN CORPUSCULAR VOLUME 97 fL (79.0-98.0); PLATELET COUNT (AUTO) 221 K/uL (130-430); RED BLOOD CELL COUNT(AUTO) 3.48 MIL/uL (4.2-6.2); RED CELL DISTRIBUTION WIDTH 14.4 % (9.0-15.0)
[2018-08-12 07:23] LABS: CALCIUM 8.6 mg/dL (8.4-11.0); CREATININE 0.58 mg/dL (0.55-1.30); POTASSIUM 3.8 mmol/L (3.5-5.1)
[2018-08-12 07:24] LABS: WHITE BLOOD COUNT (AUTO) 10.6 K/uL (4.8-10.8)
[2018-08-12 07:53] LABS: C-REACTIVE PROTEIN QUANT 13.5 mg/dL (0-0.5)
[2018-08-12 08:00] VITALS: BP_SYST 138
[2018-08-12 08:20] LABS: ERYTHROCYTE SEDIMENTATION RATE 76 MM/HR (0-15)
[2018-08-12] MEDS: QUEtiapine FUMARATE 100 MG TABLET GT SCH (09:01)
[2018-08-12] MEDS: LORazepam 1 MG TABLET GT PRN (09:01)
[2018-08-12] MEDS: DIPHENHYDRAMINE HCL 50 MG CAPSULE GT PRN (09:01)
[2018-08-12] MEDS: DIVALPROEX SODIUM 250 MG TABLET(DEPAKOTE) PO SCH ×4 (09:01→21:02)
[2018-08-12] MEDS: LISINOPRIL 5 MG TABLET GT SCH (09:02)
[2018-08-12] MEDS: OLANZapine 2.5 MG TABLET GT SCH ×3 (09:02→21:02)
[2018-08-12] MEDS: CLOTRIMAZOLE/BETAMET DIPROP 15 GM TUBE TP SCH ×2 (09:03→21:03)
[2018-08-12] MEDS: MUPIROCIN 2% TOPICAL OINTMENT 22 GM NS SCH ×2 (09:03→21:03)
[2018-08-12 10:16] LABS: ATYPICAL LYMPHOCYTES % 0 % (0-0); BAND % (MANUAL) 8 % (0-6); BASOPHILS % (MANUAL) 0 % (0-2); EOSINOPHILS % (MANUAL) 1 % (0-7); LYMPHOCYTES % (MANUAL) 10 % (20-46); MONOCYTES % (MANUAL) 7 % (0-11)
[2018-08-12 12:52] VITALS: BP_SYST 116
[2018-08-12 16:39] VITALS: BP_SYST 106
[2018-08-12] MEDS: VANCOMYCIN HCL 1,250 MG in NS 250 ML IV SCH (18:22)
[2018-08-12 18:44] LABS: VANCOMYCIN,TROUGH 5.8 ug/mL (5.0-10.0)
[2018-08-12 19:30] VITALS: BP_SYST 127
[2018-08-12] MEDS: TAMSULOSIN HCL 0.4 MG CAP GT SCH (21:01)
[2018-08-12] MEDS: FINASTERIDE 5 MG TABLET (PROSCAR) GT SCH (21:02)
[2018-08-13 01:47] VITALS: BP_SYST 136
[2018-08-13] MEDS: GENTAMICIN 80 MG/ ISO-OSM 100 ML PREMIX IV SCH (05:26)
[2018-08-13] MEDS: MEROPENEM 1 GM in NS 100 ML IV SCH ×2 (05:27→13:50)
[2018-08-13 07:36] LABS: BASOPHILS % (AUTO) 0.7 % (0.0-2.0); EOSINOPHILS # (AUTO) 0.1 K/uL (0.0-0.4); EOSINOPHILS % (AUTO) 1.8 % (0.0-4.0); HEMATOCRIT 37.6 % (36-54); HEMOGLOBIN 11.8 g/dL (14.0-18.0); LYMPHOCYTES # (AUTO) 0.6 K/uL (1.0-5.5); LYMPHOCYTES % (AUTO) 11.5 % (20.5-51.5); MEAN CORPUSCULAR HEMOGLOBIN 30 pg (27-31); MEAN CORPUSCULAR HGB CONC 32 % (32-36); MEAN CORPUSCULAR VOLUME 96 fL (79.0-98.0); MONOCYTES # (AUTO) 0.6 K/uL (0.0-1.0); NEUTROPHILS # (AUTO) 4.1 K/uL (1.8-7.7); PLATELET COUNT (AUTO) 279 K/uL (130-430); RED BLOOD CELL COUNT(AUTO) 3.91 MIL/uL (4.2-6.2); RED CELL DISTRIBUTION WIDTH 14.2 % (9.0-15.0); WHITE BLOOD COUNT (AUTO) 5.4 K/uL (4.8-10.8)
[2018-08-13 07:47] LABS: C-REACTIVE PROTEIN QUANT 7.7 mg/dL (0-0.5); CALCIUM 9.1 mg/dL (8.4-11.0); CREATININE 0.64 mg/dL (0.55-1.30); POTASSIUM 3.6 mmol/L (3.5-5.1)
[2018-08-13 08:23] LABS: ERYTHROCYTE SEDIMENTATION RATE 71 MM/HR (0-15)
[2018-08-13 08:30] VITALS: BP_SYST 134
[2018-08-13] MEDS: DIVALPROEX SODIUM 250 MG TABLET(DEPAKOTE) PO SCH ×3 (09:07→16:30)
[2018-08-13] MEDS: LORazepam 1 MG TABLET GT PRN (09:07)
[2018-08-13] MEDS: QUEtiapine FUMARATE 100 MG TABLET GT SCH (09:07)
[2018-08-13] MEDS: OLANZapine 2.5 MG TABLET GT SCH ×2 (09:07→15:09)
[2018-08-13] MEDS: DIPHENHYDRAMINE HCL 50 MG CAPSULE GT PRN (09:07)
[2018-08-13] MEDS: CLOTRIMAZOLE/BETAMET DIPROP 15 GM TUBE TP SCH (09:08)
[2018-08-13] MEDS: LISINOPRIL 5 MG TABLET GT SCH (09:08)
[2018-08-13] MEDS: MUPIROCIN 2% TOPICAL OINTMENT 22 GM NS SCH (09:08)
[2018-08-13] MEDS ORDERED: GENTAMICIN 100 mg/50 mL NS 50 ML IV SCH ×2 (09:09→17:00)
[2018-08-13] MEDS ORDERED: VANCOMYCIN HCL 1,250 MG in NS 250 ML IV SCH (10:00)
[2018-08-13] MEDS: DEXTROSE 50% JECT 50 ML DISP.SYRIN IVP PRN (11:35)
[2018-08-13 12:02] VITALS: BP_SYST 129
[2018-08-13 15:56] VITALS: BP_SYST 123
[2018-08-13 16:02] VITALS: BP_SYST 123
== END 2018-08-13 18:49 | DRG 720 ==
LOC: SED 22:02 → STU 08-08 01:51
PROVIDERS: ADMIT Preventive Medicine Preventive Medicine/Occupational Environmental Medicine; ATTEND Preventive Medicine Preventive Medicine/Occupational Environmental Medicine
DX: A41.9 Sepsis, unspecified organism (principal); J69.0 Pneumonitis due to inhalation of food and vomit; G30.9 Alzheimer's disease, unspecified; E11.65 Type 2 diabetes mellitus with hyperglycemia; J44.1 Chronic obstructive pulmonary disease with (acute) exacerbation; R13.10 Dysphagia, unspecified; F20.9 Schizophrenia, unspecified; I71.2 Thoracic aortic aneurysm, without rupture; F02.80 Dementia in other diseases classified elsewhere, unspecified severity, without behavioral disturbance, psychotic disturbance, mood disturbance, and anxiety; N39.0 Urinary tract infection, site not specified; B96.20 Unspecified Escherichia coli [E. coli] as the cause of diseases classified elsewhere; E78.5 Hyperlipidemia, unspecified; D63.8 Anemia in other chronic diseases classified elsewhere; E87.6 Hypokalemia; I10 Essential (primary) hypertension; N40.0 Benign prostatic hyperplasia without lower urinary tract symptoms; R09.02 Hypoxemia; R79.1 Abnormal coagulation profile; Z16.19 Resistance to other specified beta lactam antibiotics; Z16.24 Resistance to multiple antibiotics; Z22.322 Carrier or suspected carrier of Methicillin resistant Staphylococcus aureus; Z86.73 Personal history of transient ischemic attack (TIA), and cerebral infarction without residual deficits; Z88.0 Allergy status to penicillin; Z79.899 Other long term (current) drug therapy; Z93.1 Gastrostomy status
CPT/HCPCS: 36415; 70450-TC; 71045; 71275; 76770; 80048; 80053; 80170-TC; 80202-TC; 81000-TC; 82550-TC; 82962; 83605; 83880; 84484; 85007; 85025; 85027; 85379; 85610-TC; 85651-TC; 86140; 87040-TC; 87081; 87086; 87186-TC; 93005; 94760; 96361; 96365; 96367; 96375; 99285; J0360; J0692; J0696; J1580; J1815; J2185; J3370; J7030; J7050; J7060; Q0163; Q9967